=== PATIENT | female | born 1935 | race Caucasian/White ===

== ENCOUNTER 2017-10-09 11:13 | Emergency (ER) | payer MEDICARE, BC ==
[~2017-10-09] VITALS: Ht 154.9 cm; Wt 90.7 kg
[~2017-10-09 11:13] MED LIST: ALIGN; AMOCLA875 PO; ASCO500 PO; ASPI325; ASPI325 PO; ATEN50; ATEN50 PO; AZIT500 PO; Align4 MG PO; B-12; B-6; CALCA500CH PO; CALCIUM; CEPH500 PO; CINNAMON 500 MG PO; CIPR500 PO; CONEST.625 PO; CRANBERRY CAP PO; CRANBERRY250 MG PO; CYAN500 PO; CYCL10; CYCL10 PO; Cinnamon500 MG PO; DOCU100 PO; ERGO400 PO; ESOM20 PO; FISH1000 PO; FLAX PO; FURO40 PO; GABA100 PO; HYDACE10B; HYDACE10B PO; HYDACE5 PO; HYDACE5325 PO; HYDCHL25 PO; HYDMOR2 PO; HYDURE500 PO; INSLIS75I SC; LEVFLO500 PO; LEVSOD50 PO; LEVSOD75 PO; LIOT25; LIOT25 PO; LIOT5; LOSA50 PO; LOVA40 PO; MAGGLU250 PO; METF500 PO; METH1TAB8 PO; METO50ER PO; METR500 PO; Magnesium 300300 MG PO; NITR.4SL SL; NITR100 PO; NITR100CA PO; NITR50; NITR50 PO; Norco 5-325 Ta1 EACH PO; OLME20; OLME20 PO; OLME20-12. PO; OPIBELS PR; OXYACE5T PO; OXYACE7.5T PO; PERVISION; PIOG15; PIOG15 PO; POLY17UD; PYRI100 PO; Pyridium200 MG PO; QUIN260; RANI150 PO; SOY LECITHIN; TAMS.4ER PO; TIZA4 PO; TIZANIDINE 4 MG PO; TOCO1000 PO; UBID10; UBID100 PO; VIT1CAPS12 PO; VITAMIN D 2000 UNITS PO; VITAMIN PO; Zofran Odt8 MG SL; [UNRECOGNIZED DRUG - OTHER]; [UNRECOGNIZED DRUG - OTHER] PO
[2017-10-09] MEDS ORDERED: METO25ER PO (11:59)
[2017-10-09] MEDS ORDERED: LOSA25 PO (11:59)
[2017-10-09] MEDS ORDERED: LEVSOD50 PO (11:59)
[2017-10-09] MEDS ORDERED: Ranitidine HCl150 M1 PO (12:00)
[2017-10-09] MEDS ORDERED: Aspirin EC81 MG (12:00)
[2017-10-09] MEDS ORDERED: METF500 PO (12:00)
[2017-10-09] MEDS ORDERED: HIPREX1 GM (12:01)
[2017-10-09] MEDS ORDERED: GABA100 PO (12:01)
== END 2017-10-09 12:17 | disposition home or self-care (01) ==
LOC: ER 11:13
DX: S42.202A Unspecified fracture of upper end of left humerus, initial encounter for closed fracture (principal); Z88.5 Allergy status to narcotic agent; Z88.1 Allergy status to other antibiotic agents; Z79.899 Other long term (current) drug therapy; Z79.82 Long term (current) use of aspirin; Z79.84 Long term (current) use of oral hypoglycemic drugs; I10 Essential (primary) hypertension; E11.9 Type 2 diabetes mellitus without complications; D64.9 Anemia, unspecified; E03.9 Hypothyroidism, unspecified; W18.30XA Fall on same level, unspecified, initial encounter
CPT/HCPCS: 73030; 99283

== ENCOUNTER → 2018-07-25 | Outpatient (CLI) | payer MEDICARE, BC ==
[~2018-07-25] MED LIST changes: +Aspirin EC81 MG; +HIPREX1 GM; +LOSA25 PO; +METO25ER PO; +Ranitidine HCl150 M1 PO
[2018-07-25 15:52] LABS: Source, Urine Clean Catch
[2018-07-25 19:02] LABS: Bilirubin, Urine Neg (Neg); Blood, Urine 1+ (Neg); Glucose Qualitative, Urine Neg (Neg); Ketones, Urine Neg (Neg); Leukocyte Esterase, Urine 1+ (Neg); Nitrite, Urine Neg (Neg); Protein, Urine 3+ (Neg); Urobilinogen, Urine NORM (Normal)
[2018-07-25 19:09] LABS: Appearance, Urine Clear (Clear); Color, Urine Yellow (P-Yellow)
[2018-07-25 19:10] LABS: Bacteria Few /hpf; Squamous Epithelial Cells Few /hpf (Few)
== END ==
LOC: LAB 15:48 → LAB SHORT 15:48 → LAB FUT 07-25 15:25
PROVIDERS: Physician Assistant
DX: N39.0 Urinary tract infection, site not specified (principal)
CPT/HCPCS: 81001; 87086

== ENCOUNTER 2018-11-05 14:02 | Day surgery (SDC) | payer MEDICARE, BC | END 2018-11-05 15:02 | disposition home or self-care (01) | LOC: ATC 14:02 | DX: N39.0 Urinary tract infection, site not specified (principal); I12.9 Hypertensive chronic kidney disease with stage 1 through stage 4 chronic kidney disease, or unspecified chronic kidney disease; N18.3 Chronic kidney disease, stage 3 (moderate); D63.1 Anemia in chronic kidney disease; Z79.899 Other long term (current) drug therapy | CPT/HCPCS: J0692 ==

== ENCOUNTER 2018-11-07 00:29 | Day surgery (SDC) | payer MEDICARE, BC | END 2018-11-07 22:43 | disposition home or self-care (01) | LOC: ATC 00:29 | DX: N39.0 Urinary tract infection, site not specified (principal); I12.9 Hypertensive chronic kidney disease with stage 1 through stage 4 chronic kidney disease, or unspecified chronic kidney disease; N18.3 Chronic kidney disease, stage 3 (moderate); D63.1 Anemia in chronic kidney disease; D50.9 Iron deficiency anemia, unspecified | CPT/HCPCS: 96365; J0692 ==

== ENCOUNTER → 2019-01-28 | Outpatient (CLI) | payer MEDICARE, BC ==
[~2019-01-28] MED LIST changes: +ALPHA LIPOIC A200 MG PO; +AZO CRANBERRY1 EAC1 PO; +BENADRYL25 MG PO; +Bactrim Ds Tab1 EACH PO; +CALCITRATE200 MG PO; +CEFP200 PO; +Cinnamon500 MG; +DOXY100; +FISH OIL 1,001000 MG PO; +FOLGARD TABLET1 EACH PO; +Florastor250 MG PO; +LEVSOD25; +LORCET 5-325 M1 EACH PO; +MAGNESIUM OXID500 MG PO; +METFORMIN TAB 500; +SHINGRIX V50 MCG/0.5 IM
[2019-02-01 09:19] LABS: Stool Occult Bld Immuno 1 Negative (NEGATIVE); Stool Occult Bld Immuno 2 Negative (NEGATIVE)
== END | disposition home or self-care (01) ==
LOC: LAB SHORT 14:52 → LAB 14:52
PROVIDERS: Internal Medicine Gastroenterology
DX: K57.30 Diverticulosis of large intestine without perforation or abscess without bleeding (principal); Z86.010 Personal history of colon polyps
CPT/HCPCS: 82274

== ENCOUNTER 2019-02-24 22:38 | Inpatient (IN) | payer MEDICARE, BC ==
[~2019-02-24] VITALS: Ht 152.4 cm; Wt 85.9 kg
[~2019-02-24 22:38] MED LIST changes: -ALPHA LIPOIC A200 MG PO; -AZO CRANBERRY1 EAC1 PO; -BENADRYL25 MG PO; -Bactrim Ds Tab1 EACH PO; -CALCITRATE200 MG PO; -CEFP200 PO; -Cinnamon500 MG; -DOXY100; -FISH OIL 1,001000 MG PO; -FOLGARD TABLET1 EACH PO; -Florastor250 MG PO; -LORCET 5-325 M1 EACH PO; -MAGNESIUM OXID500 MG PO; -METFORMIN TAB 500; -SHINGRIX V50 MCG/0.5 IM
[2019-02-25 00:52] LABS: BASOPHILS PERCENT AUTO 1 % (0-2); EOSINOPHILS PERCENT AUTO 1 % (0-6); Hematocrit 38.3 % (33.0-51.0); Hemoglobin 12.4 g/dL (11.5-16.0); IMMATURE GRAN ABSOLUTE AUTO 0.12 K/mm3 (0.00-0.10); IMMATURE GRAN PERCENT AUTO 1 % (0-1); LYMPHOCYTES ABSOLUTE AUTO 1.63 K/mm3 (0.84-5.20); LYMPHOCYTES PERCENT AUTO 11 % (21-46); MONOCYTES ABSOLUTE AUTO 1.18 K/mm3 (0.16-1.47); MONOCYTES PERCENT AUTO 8 % (4-13); Mean Corpuscular HGB 29.9 pg (26.0-34.0); Mean Corpuscular HGB Conc 32.4 g/dL (31.5-36.5); Mean Corpuscular Volume 92 fL (80-100); NEUTROPHILS ABSOLUTE AUTO 11.41 K/mm3 (1.96-9.15); NEUTROPHILS PERCENT AUTO 78 % (41-73); Platelet Count 310 K/mm3 (150-400); RDW Coefficient Variation 13.9 % (11.7-14.2); Red Blood Cell Count 4.15 M/mm3 (3.80-5.20); White Blood Cell Count 14.64 K/mm3 (4.00-11.30)
[2019-02-25 01:08] LABS: Alanine Aminotransfer (ALT/SGP 22 U/L (12-78); Albumin, Blood 3.7 g/dL (3.4-5.0); Albumin/Globulin Ratio 0.9 (0.8-1.8); Alk Phos 102 U/L (50-136); Anion Gap 12 mmol/L (6-16); Aspartate Aminotrans (AST/SGOT 18 U/L (12-37); Bilirubin, Total 0.3 mg/dL (0.1-1.0); Blood Urea Nitrogen 19 mg/dL (8-24); Bun/Creatinine Ratio 20.6 (12.0-20.0); CO2, Blood 23 mmol/L (21-32); Calcium, Blood 9.1 mg/dL (8.5-10.1); Chloride, Blood 100 mmol/L (98-108); Creatinine, Blood 0.92 mg/dL (0.40-1.00); Globulin, Blood 3.9 g/dL (2.2-4.0); Glomerular Filtration Rate >60 (60-); Glucose, Blood 130 mg/dL (70-99); Magnesium, Blood 1.9 mg/dL (1.6-2.4); Potassium, Blood 3.8 mmol/L (3.5-5.5); Sodium, Blood 135 mmol/L (136-145); Total Protein, Blood 7.6 g/dL (6.4-8.2); Troponin I <0.015 ng/mL (0.000-0.040)
[2019-02-25 01:15] LABS: Source, Urine Clean Catch
[2019-02-25 01:17] LABS: Bilirubin, Urine Neg (Neg); Blood, Urine 2+ (Neg); Glucose Qualitative, Urine Neg (Neg); Ketones, Urine Neg (Neg); Leukocyte Esterase, Urine 1+ (Neg); Nitrite, Urine Neg (Neg); Protein, Urine 4+ (Neg); Specific Gravity, Urine 1.015 (1.003-1.022); Urobilinogen, Urine NORM (Normal); pH, Urine 6.5 (5.0-8.0)
[2019-02-25 01:19] LABS: Appearance, Urine Hazy (Clear); Color, Urine Yellow (P-Yellow)
[2019-02-25 01:22] LABS: Bacteria Many /hpf; Red Blood Cells, Urine 0-2 /hpf (0-2); Squamous Epithelial Cells Many /hpf (Few)
--- NOTE | 2019-02-25 18:27 | NUR ---
SHIFT SUMMARY PT AWAKE AT START OF SHIFT, RESTING QUIETLY. RECEIVED REPORT FROM IAN العراقي, PT ADMITTED FOR ACUTE DIVERTICULITIS AND N/V X2 DAYS. PT IS A&O, ABLE TO USE CALL LT APPROPRIATELY. 1P ASSIST TO BTHRM NEEDED. PT REPORTS USING FWW AT HOME BASELINE. SHOWER THIS AM. DR ENRIQUEZ IN TO SEE PT THIS AM. PT WANTING TO GO HOME TODAY, BUT HAD NOT BEEN ABLE TO TOLERATE REG DIET WHEN SEEN THIS AM. DIET ADVANCED FOR LUNCH AND DINNER. PT HAS TOLERATED W/O C/O. MEDICATED WITH TYLENOL FOR C/O HIP PAIN. PT REPORTS IT CHRONIC AT TIMES. DENIED FURTHER NEEDS. CALL LT IN REACH.
[2019-02-26 05:16] LABS: Hematocrit 36.9 % (33.0-51.0); Hemoglobin 11.8 g/dL (11.5-16.0); Mean Corpuscular HGB 29.8 pg (26.0-34.0); Mean Corpuscular Volume 93 fL (80-100); Platelet Count 293 K/mm3 (150-400); RDW Standard Deviation 48.5 fL (35.1-46.3); Red Blood Cell Count 3.96 M/mm3 (3.80-5.20); White Blood Cell Count 9.68 K/mm3 (4.00-11.30)
--- NOTE | 2019-02-26 07:23 | NUR ---
02/26/19 0600 SLEEPING NOW BUT AT 0320 PT WAS HEARD YELLING FOR "HELP". SHE WAS CONFUSED AND WANTED TO GET DRESSED AND GO HOME. RE-ORIENTED HER TO SURROUNDINGS. THEN PT WAS CONCERNED ABOUT HER CONFUSION. RN REASSURED HER SHE WAS HELPED TO BSC FOR VOIDING. AT 0415 PT C/O ITCHING IN LOW BACK. RN NOTED PINK COLORATION BUT NO RASH. MD WAS NOTIFIED AND ONE TIME BENADRYL 25 MG PO GIVEN. LATER PT STATED IT WAS RELEIVING THE ITCHING.
[2019-02-26] MEDS ORDERED: Florastor250 MG PO (11:57)
[2019-02-26] MEDS ORDERED: METR500 PO (11:57)
[2019-02-26] MEDS ORDERED: Bactrim Ds Tab1 EACH PO (11:58)
--- NOTE | 2019-02-26 13:41 | NUR ---
SHIFT SUMMARY PT RESTING QUIETLY DURING SHIFT REPORT THIS AM. NO ACUTE CHANGES TODAY. PT CONTINUED TO TOLERATE DIET. PASSING "ALOT OF GAS". BOWEL CARE GIVEN AGAIN TODAY. SM BM'S REPORTED. C/O BACK PAIN, FROM LYING IN BED TO MUCH. TYLENOL GIVEN PER EMAR AND PT REQUEST. DR ENRIQUEZ IN TO SEE PT AGAIN TODAY; D/C ORDERS PLACED. PT CALLED HER SON TO PICK HER UP. D/C INSTRCUTIONS GIVEN WITH EDU AND MEDICATIONS FAXED TO [facility] PER PT REQUEST. PT ASSISTED OUT TO CAR VIA W/C AND STEWARD/STEWARDESS BANQUET AT 1300.
[2019-03-03] MEDS ORDERED: FISH OIL 1,001000 MG PO (14:04)
[2019-03-03] MEDS ORDERED: FOLGARD TABLET1 EACH PO (14:05)
[2019-03-03] MEDS ORDERED: MAGNESIUM OXID500 MG PO (14:06)
[2019-03-03] MEDS ORDERED: AZO CRANBERRY1 EAC1 PO (14:07)
[2019-03-03] MEDS ORDERED: Cinnamon500 MG (14:07)
[2019-03-03] MEDS ORDERED: UBID100 PO (14:08)
[2019-03-03] MEDS ORDERED: VIT1CAPS12 PO (14:08)
[2019-03-03] MEDS ORDERED: CONEST.625 PO (14:09)
[2019-03-03] MEDS ORDERED: LIOT25 PO (14:09)
[2019-03-03] MEDS ORDERED: ALPHA LIPOIC A200 MG PO (14:10)
[2019-03-03] MEDS ORDERED: CALCITRATE200 MG PO (14:10)
[2019-03-03] MEDS ORDERED: BENADRYL25 MG PO (14:11)
== END 2019-02-26 12:53 | disposition home or self-care (01) | DRG 872 ==
LOC: ER 22:38 → MEDS 02-25 03:49 → ENPENDDIS 02-26 10:20 → MEDS 02-26 12:53
PROVIDERS: Emergency Medicine; Internal Medicine; ADMIT Hospitalist
DX: A41.9 Sepsis, unspecified organism (principal); K57.92 Diverticulitis of intestine, part unspecified, without perforation or abscess without bleeding; E11.9 Type 2 diabetes mellitus without complications; I10 Essential (primary) hypertension; E03.9 Hypothyroidism, unspecified; E66.01 Morbid (severe) obesity due to excess calories; G47.33 Obstructive sleep apnea (adult) (pediatric); Z66 Do not resuscitate; Z68.39 Body mass index [BMI] 39.0-39.9, adult; Z88.1 Allergy status to other antibiotic agents; Z88.5 Allergy status to narcotic agent; Z87.891 Personal history of nicotine dependence; Z79.84 Long term (current) use of oral hypoglycemic drugs; Z79.82 Long term (current) use of aspirin; Z79.899 Other long term (current) drug therapy
CPT/HCPCS: 36415; 74176; 80053; 81001; 83605; 83690; 83735; 84145; 84484; 85025; 85027; 87040; 87086; 93005; 93010; 96374; 99285; A9270; A9270-GY; J1650; J2405; J2543; J7030; J7050; Q0163

== ENCOUNTER 2019-03-07 08:27 | Day surgery (SDC) | payer MEDICARE, BC ==
[~2019-03-07] VITALS: Ht 152.4 cm; Wt 88.0 kg
[~2019-03-07 08:27] MED LIST changes: +ALPHA LIPOIC A200 MG PO; +AZO CRANBERRY1 EAC1 PO; +BENADRYL25 MG PO; +Bactrim Ds Tab1 EACH PO; +CALCITRATE200 MG PO; +Cinnamon500 MG; +FISH OIL 1,001000 MG PO; +FOLGARD TABLET1 EACH PO; +Florastor250 MG PO; +MAGNESIUM OXID500 MG PO
--- NOTE | 2019-03-07 11:23 | NUR ---
PT MEDICATED WITH LABETOLOL 10 MG IVP FOR HTN. CURRENT BP 232/106 ON RFA. WILL CONTINUE TO MONITOR. RIGHT FEMORAL SITE APPEARS STABLE AT THIS TIME.
== END 2019-03-07 13:07 | disposition home or self-care (01) ==
LOC: MHTC 08:27
DX: T82.856A Stenosis of peripheral vascular stent, initial encounter (principal); I12.9 Hypertensive chronic kidney disease with stage 1 through stage 4 chronic kidney disease, or unspecified chronic kidney disease; N18.3 Chronic kidney disease, stage 3 (moderate); D50.9 Iron deficiency anemia, unspecified; I73.9 Peripheral vascular disease, unspecified; Z87.891 Personal history of nicotine dependence; Z88.1 Allergy status to other antibiotic agents; Z88.5 Allergy status to narcotic agent; Z88.8 Allergy status to other drugs, medicaments and biological substances; Z79.899 Other long term (current) drug therapy; Z79.84 Long term (current) use of oral hypoglycemic drugs
CPT/HCPCS: 36252; 37246; 99152; 99153; C1725; C1760; C1769; C1887; C1894; J1644; J2250; J3010; J7030; Q9967

== ENCOUNTER 2019-03-26 15:58 | Emergency (ER) | payer MEDICARE, BC ==
[~2019-03-26] VITALS: Ht 157.5 cm; Wt 86.2 kg
[2019-03-26 16:37] LABS: BASOPHILS ABSOLUTE AUTO 0.14 K/mm3 (0.00-0.23); BASOPHILS PERCENT AUTO 2 % (0-2); EOSINOPHILS ABSOLUTE AUTO 0.64 K/mm3 (0.00-0.68); EOSINOPHILS PERCENT AUTO 7 % (0-6); Hematocrit 39.9 % (33.0-51.0); IMMATURE GRAN ABSOLUTE AUTO 0.05 K/mm3 (0.00-0.10); IMMATURE GRAN PERCENT AUTO 1 % (0-1); LYMPHOCYTES ABSOLUTE AUTO 1.29 K/mm3 (0.84-5.20); LYMPHOCYTES PERCENT AUTO 13 % (21-46); MONOCYTES ABSOLUTE AUTO 0.98 K/mm3 (0.16-1.47); MONOCYTES PERCENT AUTO 10 % (4-13); Mean Corpuscular HGB Conc 32.6 g/dL (31.5-36.5); Mean Corpuscular Volume 92 fL (80-100); Mean Platelet Volume 9.8 fL (9.1-12.4); NEUTROPHILS ABSOLUTE AUTO 6.51 K/mm3 (1.96-9.15); NEUTROPHILS PERCENT AUTO 68 % (41-73); Platelet Count 286 K/mm3 (150-400); RDW Coefficient Variation 13.8 % (11.7-14.2); RDW Standard Deviation 46.9 fL (35.1-46.3); Red Blood Cell Count 4.33 M/mm3 (3.80-5.20); White Blood Cell Count 9.61 K/mm3 (4.00-11.30)
[2019-03-26 16:53] LABS: Albumin, Blood 3.5 g/dL (3.4-5.0); Albumin/Globulin Ratio 0.9 (0.8-1.8); Bilirubin, Total 0.3 mg/dL (0.1-1.0); Bun/Creatinine Ratio 26.4 (12.0-20.0); Calcium, Blood 10.9 mg/dL (8.5-10.1); Creatinine, Blood 1.1 mg/dL (0.40-1.00); Globulin, Blood 3.8 g/dL (2.2-4.0); Potassium, Blood 3.8 mmol/L (3.5-5.5); Total Protein, Blood 7.3 g/dL (6.4-8.2)
[2019-03-26] MEDS ORDERED: DOXY100 (17:37)
[2019-03-26] MEDS ORDERED: METFORMIN TAB 500 (17:38)
[2019-03-26] MEDS ORDERED: LORCET 5-325 M1 EACH PO (17:38)
[2019-03-26] MEDS ORDERED: SHINGRIX V50 MCG/0.5 IM (17:38)
[2019-03-26] MEDS ORDERED: CEFP200 PO (17:38)
== END 2019-03-26 19:58 | disposition home or self-care (01) ==
LOC: ER 15:58
PROVIDERS: Emergency Medicine
DX: N39.0 Urinary tract infection, site not specified (principal); R53.1 Weakness; I10 Essential (primary) hypertension; E11.9 Type 2 diabetes mellitus without complications; E03.9 Hypothyroidism, unspecified; Z88.5 Allergy status to narcotic agent; Z88.1 Allergy status to other antibiotic agents; Z79.899 Other long term (current) drug therapy; Z79.84 Long term (current) use of oral hypoglycemic drugs; Z79.891 Long term (current) use of opiate analgesic
CPT/HCPCS: 36415; 80053; 85025; 93005; 93010; 99285-25

== ENCOUNTER → 2019-05-27 | Outpatient (CLI) | payer MEDICARE, BC ==
[~2019-05-27] MED LIST changes: +CEFP200 PO; +DOXY100; +LORCET 5-325 M1 EACH PO; +METFORMIN TAB 500; +SHINGRIX V50 MCG/0.5 IM
[2019-05-27 16:16] LABS: Source, Urine Clean Catch
[2019-05-27 16:39] LABS: Appearance, Urine Clear (Clear); Bilirubin, Urine Neg (Neg); Blood, Urine Neg (Neg); Color, Urine Yellow (P-Yellow); Glucose Qualitative, Urine Neg (Normal); Ketones, Urine Neg (Neg); Leukocyte Esterase, Urine Neg (Neg); Nitrite, Urine Neg (Neg); Protein, Urine 3+ (Neg); Urobilinogen, Urine NORM (Normal)
[2019-05-27 16:44] LABS: Bacteria Not Seen /hpf; Red Blood Cells, Urine 0-2 /hpf (0-2); Squamous Epithelial Cells Few /hpf (Few)
== END | disposition home or self-care (01) ==
LOC: LAB SHORT 16:07 → LAB EV 16:07
PROVIDERS: Physician Assistant
DX: N39.0 Urinary tract infection, site not specified (principal)
CPT/HCPCS: 81001; 87077; 87086; 87186

== ENCOUNTER → 2019-10-30 | Outpatient (CLI) | payer MEDICARE, BC ==
[2019-10-30 17:42] LABS: Percent Saturation 10.1 % (15.0-50.0)
== END | disposition home or self-care (01) ==
LOC: LAB SHORT 17:24 → LAB 17:24
PROVIDERS: Internal Medicine Hematology & Oncology
DX: D51.8 Other vitamin B12 deficiency anemias (principal); R53.83 Other fatigue; R53.81 Other malaise
CPT/HCPCS: 82607; 82746; 83540; 83550